=== PATIENT | female | born 1995 | race Caucasian/White ===

== ENCOUNTER 2017-09-27 20:21 | Emergency (ER) | payer OTHER ==
[~2017-09-27] VITALS: Ht 149.9 cm; Wt 55.0 kg
[2017-09-27 20:23] VITALS: TEMP 36.5; Ht 149.9 cm; Wt 55.0 kg
[2017-09-27] MEDS ORDERED: BCPILLS PO (20:47)
[2017-09-27] MEDS ORDERED: DEXT1CAP9 PO (20:48)
--- NOTE | 2017-09-27 21:15 | DIAGNOSTIC IMAGING REPORT ---
RIGHT KNEE 3 VIEWS CLINICAL HISTORY: Right knee pain. FINDINGS: AP, crosstable lateral, and sunrise views of the right knee are obtained. No prior studies are available for comparison at the time of dictation. The skeletal structures are well mineralized. No fracture is seen. The joint spaces are preserved. There is no joint effusion. The overlying soft tissues are within normal limits. IMPRESSION: Unremarkable radiographic assessment of the right knee. Electronically signed by: Juan Aguilar M.D. 09/27/2017 9:14 PM Dictated Date/Time: 09/27/2017 9:13 PM
--- NOTE | 2017-09-27 21:31 | EMERGENCY ROOM VISIT NOTE ---
ED Visit Note First contact with patient: 20:28 CHIEF COMPLAINT: Right knee injury this evening HISTORY OF PRESENT ILLNESS: Patient is a 22-year-old female who presents the emergency department for evaluation of right knee pain after an injury while dancing this evening. Patient reports that she was rehearsing for performance. She was pushing off of the right leg and twisting, and states that she felt a pop in her right knee. She fell down to the ground on the left side. She noted pain in the lateral aspect of the right knee and states that she was not able to bear weight. She notes the pain is worse with weightbearing and with full extension of the knee. She states that the pain is a constant, throbbing that she rates a 5/10. She denies any prior history of injuries to this knee, no surgeries. REVIEW OF SYSTEMS: Review of systems as per HPI. All other systems reviewed were negative. At least 6 systems reviewed. PMH: Electronic medical records are reviewed and summarized as above/below. See Problem List. SOCIAL HISTORY: Patient is a [employer] student from [place] who lives locally with a roommate. Non-smoker. PHYSICAL EXAM: Vital Signs: Reviewed Nurse's notes. MENTAL STATUS: Alert, oriented, and cooperative. KNEE: Examination of the right knee does not reveal any obvious deformity, skin is intact without ecchymosis or abrasions. There is no joint effusion palpable, no extra-articular soft tissue swelling. There is no pain over the quadriceps tendon, the patella or the patellar ligament. No patellar crepitus, tenderness or instability. She can extend fully, actually has a few degrees of hyperextension, flexes greater than 90, has some discomfort with full extension. She is tender over the lateral joint line, primarily posteriorly and over the LCL distribution, no pain over the medial malleolus or the MCL. Knee is stable to varus and valgus at 0 and 30. Negative Ronald's. Unable to assess Flo's well due to patient guarding. The right lower extremity is neurovascularly intact. EMERGENCY DEPARTMENT COURSE: X-rays of the right knee were obtained and negative for acute fracture or bony injury. Patient was placed in a knee immobilizer and given crutches and instructed on a weight-bear as tolerated gait. Possibility of a ligamentous or meniscal tear was discussed with her, and given that she is presently active in dance, have advised that she follow- up with orthopedics this week for reassessment of her injury, as she may require an MRI to further evaluate. She expressed understanding of this and was agreeable. She was referred to [facility]. Continued conservative care measures were discussed including ice and anti- inflammatories. She was discharged home with her friend in good condition. Medication reconciliation: I attest that I have personally reviewed the patient' s current medication list. Blood pressure screening : Patient was found to have normal blood pressure on screening and does not require follow-up. RIGHT KNEE 3 VIEWS CLINICAL HISTORY: Right knee pain. FINDINGS: AP, crosstable lateral, and sunrise views of the right knee are obtained. No prior studies are available for comparison at the time of dictation. The skeletal structures are well mineralized. No fracture is seen. The joint spaces are preserved. There is no joint effusion. The overlying soft tissues are within normal limits. IMPRESSION: Unremarkable radiographic assessment of the right knee. Problem List Medical Problems: (1) Asthma Status: Chronic Current/Historical Medications Scheduled Control Pills ( Control Pills), 1 TAB PO DAILY Dextromethorphan-Phenylephrine (Vicks Dayquil Cold & Flu), 2 CAP PO DAILY Allergies Coded Allergies: No Known Allergies (Unverified , 09/27/17) Vital Signs Date Time Temp Pulse Resp B/P (MAP) Pulse Ox O2 Delivery O2 Flow Rate FiO2 09/27/17 21:40 81 17 123/79 98 09/27/17 20:23 36.5 89 20 111/68 98 Room Air Departure Information Impression Primary Impression: Right knee injury Referrals [facility] (PCP) Pablo Coburn MD Patient Instructions My [facility] Additional Instructions Ibuprofen(Motrin, Advil) may be used for fever or pain. Use 600mg every six hours as needed. Take with food. Avoid using more than 2400mg in a 24 hour period. Do not use 2400mg per day for more than three consecutive days without physician direction. Prolonged inappropriate use can lead to stomach upset or ulcers. This medication can be taken if you need to drive, work, or perform activities which may be dangerous when taking narcotic pain medication. (AND/OR) Acetaminophen(Tylenol) may be used for fever or pain. Use 1000mg every six hours as needed. Avoid using more than 3000mg in a 24 hour period. This medication can be taken if you need to drive, work, or perform activities which may be dangerous when taking narcotic pain medication. Ice compresses for 20 minutes at a time four times daily for 2-3 days. Use the knee immobilizer and/or crutches as instructed. Rest and elevate your injury. Continue current medications. Return to the ER immediately for any numbness, tingling, severe pain, extreme swelling in the extremity or as needed. Call [facility] tomorrow to arrange follow up for your injury. Problem Qualifiers Primary Impression: Right knee injury Encounter type: initial encounter Qualified Codes: S89.91XA - Unspecified injury of right lower leg, initial encounter
[2017-09-27 21:40] VITALS: BP 123/79; PULSE 81; O2SAT 98
== END 2017-09-27 21:40 | disposition home or self-care (01) ==
LOC: MERGE 20:23 → C.EDB 20:23 → C.EDD 21:40
DX: S89.91XA Unspecified injury of right lower leg, initial encounter (principal); X50.9XXA Other and unspecified overexertion or strenuous movements or postures, initial encounter; J45.909 Unspecified asthma, uncomplicated

== ENCOUNTER → 2017-10-04 | Outpatient (CLI) | payer OTHER ==
[~2017-10-04] MED LIST: BCPILLS PO; DEXT1CAP9 PO
--- NOTE | 2017-10-04 18:11 | DIAGNOSTIC IMAGING REPORT ---
MRI OF THE RIGHT KNEE WITHOUT CONTRAST CLINICAL HISTORY: Right knee pain following injury. COMPARISON STUDY: Right knee radiographs September 27, 2017. TECHNIQUE: Utilizing a 1.5 Lissette magnet and dedicated coil, multiplanar, multiecho imaging of the right knee was performed without intravenous or intraarticular contrast. FINDINGS: The posterior cruciate ligament is intact. There is a complete tear of the anterior cruciate ligament. The medial collateral ligament and lateral collateral ligament complex are intact. This exam is mildly compromised by motion artifact. Extensor mechanism is intact. There is a trace right knee joint effusion. There is mild subchondral edema of the lateral femoral condyle and posterior aspect of the lateral tibial plateau which reflect bone contusions seen in the setting of an ACL tear. There is minimal subcutaneous edema overlying the anterior medial aspect of the left tibia. There is minimal edema within the tibial spines. No meniscal tear is identified. No significant chondrosis is noted other than the impaction injury of the lateral femoral condyle. IMPRESSION: 1. Findings consistent with an ACL tear. 2. Mild subchondral edema of the lateral femoral condyle and lateral tibial plateau consistent with bone contusions in the setting of an ACL tear. 3. Trace right knee joint effusion. 4. No meniscal tear. Electronically signed by: Shiva Jeronimo M.D. 10/04/2017 6:09 PM Dictated Date/Time: 10/04/2017 5:37 PM
== END | disposition home or self-care (01) ==
LOC: C.MRIBC 16:27
PROVIDERS: ATTEND Orthopaedic Surgery Sports Medicine
DX: S89.91XA Unspecified injury of right lower leg, initial encounter (principal); X58.XXXA Exposure to other specified factors, initial encounter